=== PATIENT | female | born 1985 | race African-American/Black ===

== ENCOUNTER 2019-11-10 09:59 | Emergency (ER) | payer MEDICAID ==
[~2019-11-10] VITALS: Ht 172.7 cm; Wt 113.4 kg
[2019-11-10 09:59] VITALS: BP_SYST 142
[2019-11-10] MEDS ORDERED: methylPREDNISolone SOD SUCC/PF 62.5 MG/ML VIAL IVP ONE (10:15)
[2019-11-10] MEDS ORDERED: IPRATROPIUM BROM 0.5 MG/2.5 ML VIAL.NEB (ATROVENT) INH ONE (10:15)
[2019-11-10] MEDS ORDERED: ALBUTEROL SULFATE 0.083% 2.5 MG/3 ML VIAL.NEB INH ONE (10:15)
[2019-11-10] MEDS ORDERED: ALLO100T PO (10:28)
[2019-11-10] MEDS ORDERED: NACL 0.9% 1,000 ML IV ONE (11:07)
[2019-11-10 11:41] LABS: BASOPHILS % (AUTO) 0.4 % (0.0-2.0); EOSINOPHILS # (AUTO) 0.2 K/uL (0.0-0.4); HEMATOCRIT 40.6 % (36-48); HEMOGLOBIN 13.4 g/dL (12.0-16.0); LYMPHOCYTES # (AUTO) 1.6 K/uL (1.0-5.5); LYMPHOCYTES % (AUTO) 30.1 % (20.5-51.5); MEAN CORPUSCULAR HEMOGLOBIN 27 pg (27-31); MEAN CORPUSCULAR HGB CONC 33 % (32-36); MEAN CORPUSCULAR VOLUME 83 fL (79.0-98.0); MONOCYTES # (AUTO) 0.6 K/uL (0.0-1.0); MONOCYTES % (AUTO) 11.1 % (1.7-9.3); NEUTROPHILS % (AUTO) 55.4 % (40.0-70.0); PLATELET COUNT (AUTO) 368 K/uL (130-430); RED BLOOD CELL COUNT(AUTO) 4.92 MIL/uL (4.2-6.2); RED CELL DISTRIBUTION WIDTH 13.7 % (9.0-15.0); WHITE BLOOD COUNT (AUTO) 5.4 K/uL (4.8-10.8)
[2019-11-10 11:45] LABS: CALCIUM 8.6 mg/dL (8.4-11.0); CREATININE 0.82 mg/dL (0.55-1.30); POTASSIUM 4.1 mmol/L (3.5-5.1)
[2019-11-10 11:48] LABS: PROTHROMBIN TIME 9.6 SECS (9.5-12.5)
[2019-11-10 11:49] LABS: ALBUMIN 3.7 g/dL (3.4-4.8); TOTAL BILIRUBIN 0.2 mg/dL (0.0-1.0)
[2019-11-10 12:36] VITALS: BP_SYST 132
== END 2019-11-10 12:36 | disposition home or self-care (01) ==
LOC: SED 09:59
DX: J20.9 Acute bronchitis, unspecified (principal); R06.02 Shortness of breath; R05 Cough; F41.9 Anxiety disorder, unspecified
CPT/HCPCS: 36415; 80053; 82150; 83690; 84484; 85025; 85610; 85730; 94640; 96374; 99283; J2930; J7030; J7613

== ENCOUNTER 2020-08-10 05:04 | Emergency (ER) | payer MEDICAID, SELFPAY ==
[~2020-08-10] VITALS: Ht 172.7 cm; Wt 113.4 kg
[~2020-08-10 05:04] MED LIST: ALLO100T PO
[2020-08-10 05:17] VITALS: BP_SYST 140
--- NOTE | 2020-08-10 05:17 | NUR ---
ER DR. CISSE AT THE BEDSIDE EVALUATING PT
--- NOTE | 2020-08-10 05:17 | NUR ---
Pt placed to ER bed 07. Report given to BERTHA Quinonez.
--- NOTE | 2020-08-10 05:18 | NUR ---
PT PRESENTS FROM HOME WITH C/O GENERAL BODY ACHES X4 DAYS. REPORTS HAVING A COUGH WITH SOME BROWN TINGED MUCUS OCCASIONALLY WHEN SHE COUGHS. HX OF HTN, GOUT. DENIES ANY FEVER, CP, N/V, SOB. AAOX4, V/S STABLE
[2020-08-10] MEDS ORDERED: NACL 0.9% 1,000 ML IV ONE (05:30)
[2020-08-10] MEDS ORDERED: KETOROLAC TROMETHAMINE 30 MG VIAL IVP ONE (05:30)
--- NOTE | 2020-08-10 05:35 | NUR ---
# 20 gauge angiocath placed to RAC. Use of asceptic technique. Opsite placed over site. Blood return noted. Blood for lab drawn from site. Flushed with 10 cc of normal saline. No evidence of infiltration noted. Patient tolerated well.
--- NOTE | 2020-08-10 05:40 | NUR ---
Specimen collected from right nasopharynx for COVID-19 Neelam and sent to lab.
--- NOTE | 2020-08-10 05:50 | NUR ---
X-ray at bedside.
[2020-08-10 06:04] LABS: HEMOGLOBIN 15.1 g/dL (12.0-16.0); WHITE BLOOD COUNT (AUTO) 3.7 K/uL (4.8-10.8)
[2020-08-10 06:08] LABS: BASOPHILS % (AUTO) 0.8 % (0.0-2.0); EOSINOPHILS % (AUTO) 0.3 % (0.0-4.0); HEMATOCRIT 44.5 % (36-48); LYMPHOCYTES # (AUTO) 1.2 K/uL (1.0-5.5); LYMPHOCYTES % (AUTO) 31.3 % (20.5-51.5); MEAN CORPUSCULAR HEMOGLOBIN 27 pg (27-31); MEAN CORPUSCULAR HGB CONC 34 % (32-36); MEAN CORPUSCULAR VOLUME 81 fL (79.0-98.0); MONOCYTES # (AUTO) 0.4 K/uL (0.0-1.0); MONOCYTES % (AUTO) 10.7 % (1.7-9.3); NEUTROPHILS # (AUTO) 2.1 K/uL (1.8-7.7); PLATELET COUNT (AUTO) 324 K/uL (130-430); RED BLOOD CELL COUNT(AUTO) 5.52 MIL/uL (4.2-6.2); RED CELL DISTRIBUTION WIDTH 13.5 % (9.0-15.0)
[2020-08-10 06:09] LABS: CALCIUM 8.3 mg/dL (8.4-11.0); CREATININE 0.75 mg/dL (0.55-1.30); POTASSIUM 3.9 mmol/L (3.5-5.1)
[2020-08-10 06:24] LABS: ALBUMIN 3.6 g/dL (3.4-4.8); FREE T4 (FREE THYROXINE) 0.8 ng/dl (0.8-1.5); THYROID STIMULATING HORMONE 1.17 uIu/mL (0.36-3.74); TOTAL BILIRUBIN 0.3 mg/dL (0.0-1.0)
--- NOTE | 2020-08-10 06:28 | NUR ---
Lab calls to inform pt is COVID-19 positive. Pt placed on contact/droplet isolation, MD and staff notified.
--- NOTE | 2020-08-10 07:10 | NUR ---
REPORT GIVEN TO BERTHA PARDO FOR CONTINUING CARE
[2020-08-10 07:30] VITALS: BP_SYST 138
--- NOTE | 2020-08-10 07:30 | NUR ---
Patient given written and verbal discharge instructions and verbalizes understanding. ER MD discussed with patient the results and treatment provided. Patient in stable condition. ID arm band removed. IV catheter removed intact and dressing applied, no active bleeding. Rx of motrin, azithromycin, zinc, promethazine given. Patient educated on pain management and to follow up with PMD. Pain Scale 3/10 . Opportunity for questions provided and answered. Medication side effect fact sheet provided.
[2020-08-10 07:37] LABS: NEUTROPHILS % (AUTO) 56.9 % (40.0-70.0)
== END 2020-08-10 07:30 | disposition home or self-care (01) ==
LOC: SED 05:04
DX: U07.1 COVID-19 (principal); F41.9 Anxiety disorder, unspecified; F17.200 Nicotine dependence, unspecified, uncomplicated
CPT/HCPCS: 36415; 71045; 80053; 81025; 84439; 84443; 85025; 87426; 96361; 96374; 99284; J1885; J7030

== ENCOUNTER 2022-06-18 17:00 | Emergency (ER) | payer MEDICAID ==
[~2022-06-18] VITALS: Ht 172.7 cm; Wt 113.4 kg
[2022-06-18 17:10] VITALS: BP_SYST 138
--- NOTE | 2022-06-18 17:20 | NUR ---
Patient triaged and placed in waiting room. VSS and patient appears in no acute distress at this time. Accompanied by SELF, awaiting available bed, and MD notified of need for MSE.
--- NOTE | 2022-06-18 17:55 | NUR ---
Placed in room 8 . Placed on media monitor, blood pressure machine and pulse oximeter. To gown for exam. Side rails up. Report given to BERTHA BONILLA.
[2022-06-18 18:41] LABS: BASOPHILS % (AUTO) 0.7 % (0.0-2.0); EOSINOPHILS # (AUTO) 0.1 K/uL (0.0-0.4); EOSINOPHILS % (AUTO) 3.2 % (0.0-4.0); HEMATOCRIT 30.8 % (36-48); LYMPHOCYTES # (AUTO) 1.5 K/uL (1.0-5.5); LYMPHOCYTES % (AUTO) 32.1 % (20.5-51.5); MEAN CORPUSCULAR VOLUME 74 fL (79.0-98.0); MONOCYTES # (AUTO) 0.4 K/uL (0.0-1.0); MONOCYTES % (AUTO) 9.4 % (1.7-9.3); NEUTROPHILS # (AUTO) 2.5 K/uL (1.8-7.7); NEUTROPHILS % (AUTO) 54.6 % (40.0-70.0); PLATELET COUNT (AUTO) 439 K/uL (130-430); RED BLOOD CELL COUNT(AUTO) 4.18 MIL/uL (4.2-6.2); RED CELL DISTRIBUTION WIDTH 17.1 % (9.0-15.0); WHITE BLOOD COUNT (AUTO) 4.6 K/uL (4.8-10.8)
[2022-06-18 18:46] LABS: ANION GAP 5 (5-15); CALCIUM 8.8 mg/dL (8.4-11.0); CHLORIDE 105 mmol/L (98-107); CREATININE 1.02 mg/dL (0.55-1.30); GFR AFRICAN AMERICAN 78 mL/min (>90); GLUCOSE 91 mg/dL (70-99); POTASSIUM 4.4 mmol/L (3.5-5.1); SODIUM SERUM 140 mmol/L (136-145); UREA NITROGEN, BLOOD 10 mg/dL (8-21)
[2022-06-18 18:57] LABS: ALANINE AMINOTRANSFERASE 21 U/L (12-78); ALBUMIN 2.9 g/dL (3.4-4.8); ASPARTATE AMINOTRANSFERASE 11 U/L (10-37); HCG,QUANTITATIVE 0 mIU/ML (0-6); TOTAL BILIRUBIN 0.2 mg/dL (0.0-1.0)
[2022-06-18 18:58] LABS: C-REACTIVE PROTEIN QUANT < 0.2 mg/dL (0-0.5)
--- NOTE | 2022-06-18 19:05 | NUR ---
Attended to patient throughout the last two hours sixto concerns about patient having dizziness over the last two weeks. Patient awaiting MD evaluation at this time.
--- NOTE | 2022-06-18 19:47 | NUR ---
Patient given written and verbal discharge instructions and verbalizes understanding. ER MD discussed with patient the results and treatment provided. Patient in stable condition. ID arm band removed. Patient educated on pain management and to follow up with PMD. Pain Scale . Opportunity for questions provided and answered. Medication side effect fact sheet provided.
== END 2022-06-18 19:46 | disposition home or self-care (01) ==
LOC: SED 17:00
DX: R60.0 Localized edema (principal); I10 Essential (primary) hypertension; Z79.899 Other long term (current) drug therapy
CPT/HCPCS: 36415; 71045; 80053; 83880; 84484; 84702; 85025; 86140; 93005; 99285

== ENCOUNTER 2022-08-23 15:21 | Emergency (ER) | payer MEDICAID ==
[~2022-08-23] VITALS: Ht 167.6 cm; Wt 113.4 kg
[2022-08-23 15:50] VITALS: BP_SYST 139
[2022-08-23] MEDS ORDERED: LOPE2CAP PO (18:13)
--- NOTE | 2022-08-23 18:15 | NUR ---
PT BIB SELF AWAKE AND ALERT AOX4. NO SOB OR DISTRESS. PT/C/O DIAHREA X5 DAYS. PT DENIES N/V. PT STATES PAIN 05/11.
--- NOTE | 2022-08-23 18:17 | NUR ---
MD DR POSEY AT BEDSIDE W/ PT.
--- NOTE | 2022-08-23 18:25 | NUR ---
Patient given written and verbal discharge instructions and verbalizes understanding. ER MD discussed with patient the results and treatment provided. Patient in stable condition. ID arm band removed. Rx of IMMODIUM given. Patient educated on pain management and to follow up with PMD. Pain Scale . Opportunity for questions provided and answered. Medication side effect fact sheet provided.
[2022-08-23 18:26] VITALS: BP_SYST 128
== END 2022-08-23 18:26 | disposition home or self-care (01) ==
LOC: SED 15:21
DX: K52.9 Noninfective gastroenteritis and colitis, unspecified (principal); R10.12 Left upper quadrant pain; I10 Essential (primary) hypertension; Z79.899 Other long term (current) drug therapy
CPT/HCPCS: 99282

== ENCOUNTER 2023-05-02 19:52 | Emergency (ER) | payer MEDICAID ==
[~2023-05-02] VITALS: Ht 172.7 cm; Wt 113.4 kg
[~2023-05-02 19:52] MED LIST changes: +BENZ1LOZ73 PO; +IBUP-1970 PO; +LOPE2CAP PO
[2023-05-02 20:14] VITALS: BP_SYST 137; PULSE 98; RESP 20; TEMP 97.8; O2SAT 99
[2023-05-02] MEDS ORDERED: KETOROLAC TROMETHAMINE 60 MG/2 ML VIAL IM ONE (21:45)
[2023-05-02] MEDS ORDERED: IBUP-1969 PO (22:45)
[2023-05-02] MEDS ORDERED: METH-634 PO (22:45)
[2023-05-02 22:51] VITALS: BP_SYST 137; PULSE 98; RESP 20; TEMP 97.8; O2SAT 99
== END 2023-05-03 02:11 | disposition home or self-care (01) ==
LOC: SED 19:52
DX: M54.50 Low back pain, unspecified (principal); M79.662 Pain in left lower leg; I10 Essential (primary) hypertension; Z79.899 Other long term (current) drug therapy
CPT/HCPCS: 99283; 72100; 81025; 96372; J1885

== ENCOUNTER 2023-10-03 12:19 | Emergency (ER) | payer MEDICAID ==
[~2023-10-03] VITALS: Ht 172.7 cm; Wt 104.3 kg
[~2023-10-03 12:19] MED LIST changes: +IBUP-1969 PO; +METH-634 PO
[2023-10-03 12:58] VITALS: BP_SYST 158; PULSE 114; RESP 20; TEMP 98.2; O2SAT 100
[2023-10-03] MEDS ORDERED: CEPH-548 PO (13:49)
[2023-10-03 14:00] VITALS: BP_SYST 158; PULSE 114; RESP 20; TEMP 98.2; O2SAT 100
== END 2023-10-03 14:00 | disposition home or self-care (01) ==
LOC: SED 12:19
DX: T21.24XA Burn of second degree of lower back, initial encounter (principal); Z79.899 Other long term (current) drug therapy; X08.8XXA Exposure to other specified smoke, fire and flames, initial encounter; Y93.89 Activity, other specified; Y92.89 Other specified places as the place of occurrence of the external cause; Y99.8 Other external cause status
CPT/HCPCS: 99283